=== PATIENT | female | born 1950 | race Caucasian/White ===

== ENCOUNTER 2024-08-18 09:17 | Emergency (ER) | payer MEDICARE, OTHER, SELFPAY ==
[2024-08-18] VITALS (7 sets, daily range): BP systolic 127–149; BP diastolic 61–76; PULSE 51–68; RESP 13–22; TEMP 36.7; O2SAT 93–96; BMI 38.6
--- NOTE | 2024-08-18 09:25 | DI.RAD.S_ITS ---
PROCEDURE: XR CHEST 1V INDICATIONS: Shortness of breath TECHNIQUE: One view of the chest was acquired. COMPARISON: None. FINDINGS: Surgical changes and devices: None. Lungs and pleura: Lungs are clear except for a slight degree of alveolar infiltration at the lateral costophrenic sulcus of the left lower lobe area. No pleural effusions or pneumothorax. Mediastinum: Mediastinal contours appear normal. Heart size is normal. Bones and chest wall: No suspicious bony lesions. Overlying soft tissues appear unremarkable. IMPRESSION: Possible mild or early pneumonia lateral left lower lobe. No associated pleural effusion is seen. Dictated by: Jose Juan Hwang M.D. on 08/18/2024 at 9:37 Approved by: Jose Juan Hwang M.D. on 08/18/2024 at 9:38
--- NOTE | 2024-08-18 09:30 | EKG_ITS ---
[address] [id number] [address], [place] [address] Test Date: 2024-08-18 Pat Name: Rin Piper Department: Room: Gender: Female Community Leader: RANDY : 1950 Requested By: Order Number: [id number] Reading MD: Davidson Castañeda MD Measurements Intervals [place] Rate: 54 P: 17 GA: 156 QRS: 23 QRSD: 88 T: 15 QT: 482 QTc: 457 Interpretive Statements Sinus bradycardia Inferior infarct , age undetermined Possible Anterior infarct , age undetermined Electronically Signed On 08-18-2024 12:04:06 PST by Davidson Castañeda MD
--- NOTE | 2024-08-18 09:45 | ED.GENADULT ---
HPI - General Adult General Chief complaint: Shortness of Breath/Dyspnea Stated complaint: leg/feet sweelling Time Seen by Provider: 08/18/24 09:31 Source: patient Mode of arrival: Ambulatory History of Present Illness HPI narrative: 73-year-old female. Here for evaluation of bilateral lower extremity swelling. She also reports some shortness of breath but feels that that is very minor issue. No cough. No fevers. No chest pain. No trauma. She states she has had her legs swell 1 time in the past but it only lasted a day or 2 and resolved on its own. She does have history of hypertension. No prior history of coronary artery disease that is diagnosed. No history of heart failure. Related Data Previous Rx's Medication Instructions Recorded furosemide 20 mg tablet (Lasix) 20 mg PO DAILY #30 tabs 08/18/24 Allergies Allergy/AdvReac Type Severity Reaction Status Date / Time codeine Allergy Verified 08/18/24 09:26 Review of Systems Review of Systems ROS Unobtainable: All systems reviewed & are unremarkable except as noted in HPI and below Patient History Social History Smoking Status: Unknown if ever smoked Smoking Status: Unknown if ever smoked Exam Initial Vital Signs Initial Vital Signs: Vital Signs Temperature 98.0 F 08/18/24 09:18 Pulse Rate 68 08/18/24 09:18 Respiratory Rate 14 08/18/24 09:18 Blood Pressure 130/61 08/18/24 09:18 Pulse Oximetry 96 08/18/24 09:18 Oxygen Delivery Method Room Air 08/18/24 09:18 Const General: cooperative, comfortable and No ill appearing [facility] Head: normal to inspection and normocephalic Resp Effort & Inspection: normal respiratory effort Auscultation: clear to auscultation bilaterally Cardio Rate: regular rate Rhythm: regular rhythm Pulses: dorsalis pedis present bilaterally GI Inspection: normal to inspection and non-distended Neuro Sensory Exam: no sensory deficits noted Extrem General: capillary refill normal and edema Course Orders Ordered: ED Orders 08/18/24 09:25 XR chest 1V Stat EKG-12 Lead Stat 08/18/24 09:50 Complete Blood Count AUTO DIFF Stat Comprehensive Metabolic Panel Stat NT-proBNP (BNP-Adult 18+) Stat Troponin & CK Cardiac Panel Stat Vital Signs Vital signs: Vital Signs - 8 hr 08/18/24 09:18 Temperature 98.0 F Pulse Rate 68 Respiratory Rate 14 Blood Pressure 130/61 Pulse Oximetry 96 Oxygen Delivery Method Room Air Medical Decision Making Lab Data Lab results reviewed: Yes I reviewed the patient's lab results. 08/18/24 09:50 08/18/24 09:50 Labs: Lab Results 08/18/24 08/18/24 Range/Units 09:50 09:50 WBC 5.9 (4.5-11.0) X10^3/uL RBC 4.15 (4.0-5.2) X10^6/uL Hgb 13.9 (12.0-16.0) g/dL Hct 40.6 (36-46) % MCV 97.8 (80-100) fL MCH 33.6 (26-34) PG MCHC 34.3 (30-36) % RDW 14.1 (11.6-14.8) % Plt Count 148 L (150-400) X10^3/uL Neut % (Auto) 73.5 (50-75) % Lymph % (Auto) 14.1 L (25-40) % [place] % (Auto) 12.1 (3-14) % Eos % (Auto) 0.1 L (2-4) % Baso % (Auto) 0.2 (0-2) % Neut # (Auto) 4400 (0942-5665) /uL Lymph # (Auto) 800 L (4776-7783) /uL [place] # (Auto) 700 (0-900) /uL Eos # (Auto) 0 (0-450) /uL Baso # (Auto) 0 (0-100) /uL Sodium 134 L (137-145) mmol/L Potassium 4.4 (3.4-5.1) mmol/L Chloride 108 H (98-107) mmol/L Carbon Dioxide 21 L (22-32) mmol/L BUN 18 H (7-17) mg/dL Creatinine 0.72 (0.52-1.04) mg/dL Estimated GFR > 60 (>60) mL/min BUN/Creatinine Ratio 25.0 H (6-22) Glucose 156 H (80-110) mg/dL Calcium 9.8 (8.4-10.2) mg/dL Total Bilirubin 1.0 (0.2-1.3) mg/dL AST 81 H (14-36) IU/L ALT 49 H (<35) IU/L Alkaline Phosphatase 138 H (38-126) U/L Total Creatine Kinase 108 (30-135) U/L Troponin I Cancelled < 0.012 NT-Pro-B Natriuret Pep 138 H (<125) pg/mL Total Protein 6.9 (6.3-8.2) g/dL Albumin 3.7 (3.5-5.0) g/dL Globulin 3.2 (1.7-4.1) g/dL Albumin/Globulin Ratio 1.2 (1.0-2.8) Imaging Data Chest x-ray: Radiologist's Impression: PROCEDURE: XR CHEST 1V INDICATIONS: Shortness of breath TECHNIQUE: One view of the chest was acquired. COMPARISON: None. FINDINGS: Surgical changes and devices: None. Lungs and pleura: Lungs are clear except for a slight degree of alveolar infiltration at the lateral costophrenic sulcus of the left lower lobe area. No pleural effusions or pneumothorax. Mediastinum: Mediastinal contours appear normal. Heart size is normal. Bones and chest wall: No suspicious bony lesions. Overlying soft tissues appear unremarkable. IMPRESSION: Possible mild or early pneumonia lateral left lower lobe. No associated pleural effusion is seen. ECG Data Attestation: I personally reviewed and interpreted this ECG as follows: Interpretation: Sinus bradycardia Ventricular rate of 54 Normal axis Normal QRS Normal QTC No ST T wave changes MDM Narrative Medical decision making narrative: Patient does have bilateral lower extremity swelling. She was not in overt heart failure. Her BNP is unremarkable. She was not hypertensive. Kidney functions unremarkable. Electrolytes unremarkable. Low suspicion for fracture. Low suspicion for DVT. Low suspicion for cellulitis. No trauma. No chest pain or shortness of breath. She was on hydrochlorothiazide for blood pressure control. She was also on spironolactone. Plan will be to put her on Lasix for the next couple days. I did discuss this with her. She can take it as needed. She does not have a primary doctor in the area but was given information for this. She was given return precautions. She expressed understanding and agreement with plan. Discharge Plan Departure Patient Disposition: Home Clinical Impression: Bilateral edema of lower extremity Instructions: DI for Peripheral Edema -- Bilateral Activity Restrictions/Additional Instructions: Continue to take the Lasix/furosemide as directed. Contact the phone number on the card that you were given to help establish a primary doctor. That number is #[phone]. Return to the emergency department for new or worsening symptoms. Prescriptions: New furosemide [Lasix] 20 mg tablet 20 mg PO DAILY Qty: 30 0RF Stand Alone Forms: Patient Portal/API/Survey
--- NOTE | 2024-08-18 09:47 | PC.NURSE ---
One missed attempt right forearm. Infiltrated. Pressure dressing applied. Patint tolerated well
[2024-08-18 09:58] LABS: Add Manual Diff / Slide Review NO; Basophils Absolute Auto 0 /uL (0-100); Basophils Percent Auto 0.2 % (0-2); Eosinophils Absolute Auto 0 /uL (0-450); Eosinophils Percent Auto 0.1 % (2-4); Hematocrit 40.6 % (36-46); Hemoglobin 13.9 g/dL (12.0-16.0); Lymphocytes Absolute Auto 800 /uL (1100-4500); Lymphocytes Percent Auto 14.1 % (25-40); Mean Corpuscular HGB Conc 34.3 % (30-36); Mean Corpuscular Hemoglobin 33.6 PG (26-34); Mean Corpuscular Volume 97.8 fL (80-100); Monocytes Absolute Auto 700 /uL (0-900); Monocytes Percent Auto 12.1 % (3-14); Neutrophils Absolute Auto 4400 /uL (1500-7000); Neutrophils Percent Auto 73.5 % (50-75); Platelet Count 148 X10^3/uL (150-400); Red Blood Cell Count 4.15 X10^6/uL (4.0-5.2); Red Cell Distribution Width 14.1 % (11.6-14.8); White Blood Cell Count 5.9 X10^3/uL (4.5-11.0)
[2024-08-18 10:11] LABS: Creatine Kinase 108 U/L (30-135)
[2024-08-18 10:21] LABS: NT-proBNP (BNP-Adult 18+) 138 pg/mL (<125)
[2024-08-18 10:24] LABS: Troponin I < 0.012 ng/mL (0.01-0.034)
[2024-08-18 10:35] LABS: Alanine Aminotransferase 49 IU/L (<35); Albumin 3.7 g/dL (3.5-5.0); Albumin Globulin Ratio 1.2 (1.0-2.8); Alkaline Phosphatase 138 U/L (38-126); Aspartate Aminotransferase 81 IU/L (14-36); Blood Urea Nitrogen 18 mg/dL (7-17); Calcium 9.8 mg/dL (8.4-10.2); Carbon Dioxide 21 mmol/L (22-32); Chloride 108 mmol/L (98-107); Estimated Glomerular Filt Rate > 60 mL/min (>60); Globulin 3.2 g/dL (1.7-4.1); Glucose 156 mg/dL (80-110); HEMOLYSIS 15 (0-50); Potassium 4.4 mmol/L (3.4-5.1); Sodium 134 mmol/L (137-145); Total Protein 6.9 g/dL (6.3-8.2)
== END 2024-08-18 11:26 | disposition home or self-care (01) ==
PROVIDERS: Emergency Provider Emergency Medicine
DX: R60.0 Localized edema (principal); R06.02 Shortness of breath
CPT/HCPCS: 36415; 71045; 80053; 82550; 83880; 84484; 85025; 93005; 93010; 99284

== ENCOUNTER 2024-09-30 09:55 | Emergency (ER) | payer MEDICARE, OTHER, SELFPAY ==
[2024-09-30 10:00] VITALS: BMI 37.8
[2024-09-30 10:02] VITALS: BP 190/79; PULSE 63; RESP 12; TEMP 36.7; O2SAT 96
--- NOTE | 2024-09-30 10:33 | ED.HEATRA ---
HPI - Head Injury General Chief complaint: Head Injury Stated complaint: Fell; hit top of head, No blood thinners Time Seen by Provider: 09/30/24 10:25 Source: patient and family Mode of arrival: Ambulatory History of Present Illness HPI Narrative: Patient is a 74-year-old healthy female presenting today with closed head injury. Reports that she tripped over 1 stairs hitting the right side of her head on cazares and molding. She has not on antiplatelet or anticoagulation medication. She did not lose consciousness. She has no nausea or vomiting. No numbness tingling or weakness. She denies any neck pain Related Data Previous Rx's Medication Instructions Recorded furosemide 20 mg tablet (Lasix) 20 mg PO DAILY #30 tabs 08/18/24 Allergies Allergy/AdvReac Type Severity Reaction Status Date / Time codeine Allergy Verified 09/30/24 10:02 Patient History Social History Smoking Status: Unknown if ever smoked Smoking Status: Unknown if ever smoked Exam Initial Vital Signs Initial Vital Signs: Vital Signs Temperature 98.1 F 09/30/24 10:02 Pulse Rate 63 09/30/24 10:02 Respiratory Rate 12 09/30/24 10:02 Blood Pressure 190/79 H 09/30/24 10:02 Pulse Oximetry 96 09/30/24 10:02 Oxygen Delivery Method Room Air 09/30/24 10:02 GENERAL: Well-appearing, well-nourished and in no acute distress. HEAD: Right scalp laceration 3 cm good skin approximation no crepitations no depressions NECK: No vertebral tenderness no step-off full flexion and extension and rotation CARDIOVASCULAR: peripheral pulses in tact, cap refill <2 sec RESPIRATORY: No respiratory distress, speaks in full sentences without difficulty EXTREMITIES: Normal range of motion, no clubbing or edema. Neurovascularly intact NEUROLOGICAL: Cranial nerves II through XII grossly intact. Normal gait and speech. SKIN: Right-sided scalp laceration 3 cm Procedures Laceration Repair Laceration 1: Site: scalp Side (If applicable): right Size (cm): 3 Description: linear Depth: simple, single layer Pre-repair: wound explored, irrigated extensively and deep structures intact Skin layer closed with: luis (2) Scores [place] CT Head Rule Age <16 years old: No Patient on blood thinners: No Seizure after injury: No Exclusion: Patient NOT Excluded, Proceed to next steps GCS < 15 at 2 hr post trauma: No Suspected open or depressed skull fracture: No Any sign of basilar skull fracture (hemotympanum, raccoon eyes, Lopez's sign, CSF alanna-/rhinorrhea): No Two or more episodes of vomiting: No Age greater or equal to 65 years: Yes Retrograde amnesia to the event greater or equal to 30 min: No Dangerous Mechanism (pedestrian vs. mv, occupant ejected from mv, fall from >3 ft or > 5 stairs): No Recommendation: Consider CT. The [place] Head CT Rule cannot rule out need for Imaging. Course Orders Ordered: Discontinued Medications Acetaminophen (Acetaminophen 325 Mg Tablet) 975 mg PO NOW ONE Stop: 09/30/24 10:58 Last Admin: 09/30/24 11:02 Dose: 975 mg Documented By: DIANA Diphtheria/Tetanus/Acell Pertussis (Tet,Diph,Pertuss(Acell),Vac/Pf 0.5 Ml Syringe) 0.5 ml IM .ONCE ONE Stop: 09/30/24 10:58 Last Admin: 09/30/24 11:01 Dose: 0.5 ml Documented By: DIANA Vital Signs Vital signs: Vital Signs - 8 hr 09/30/24 10:02 09/30/24 11:08 Temperature 98.1 F 98.6 F Pulse Rate 63 60 Respiratory Rate 12 20 Blood Pressure 190/79 H 185/80 H Pulse Oximetry 96 100 Oxygen Delivery Method Room Air Room Air MDM - Head Injury MDM Narrative Medical decision making narrative: Patient is a healthy 74-year-old female presenting today with closed head injury. She is not on antiplatelet or anticoagulation. She has no evidence of depressed skull fracture no needing imaging at this time. 2 luis easily placed. Tetanus updated given Tylenol here in the ED GCS 15 Discharge Plan Departure Patient Disposition: Home Clinical Impression: Closed head injury, Laceration of scalp Instructions: DI for Laceration Repair -- Ragan, Closed Head Injury Activity Restrictions/Additional Instructions: *You have been diagnosed with closed head injury, scalp laceration *What to do: At this time keep luis in for about 7 days. May have them removed with PCP Okay to shower and bathe with soap and water May need antibiotic ointment 1-2 times daily over staple *Continue to take medications as directed Tylenol 650 mg every 4-6 hours if needed for [id number] pain Motrin 600 mg every 6 hours for [id number] pain *Follow up with your primary care provider in 2-3 days or call [phone] *Return to ER if you should have increasing headache nausea vomiting weakness redness swelling drainage or any new, worsening or concerning symptoms Prescriptions: No Action furosemide [Lasix] 20 mg tablet 20 mg PO DAILY Qty: 30 0RF Referrals: Olive Cabral DO [Primary Care Provider] - Stand Alone Forms: Patient Portal/API/Survey
[2024-09-30] MEDS: TET,DIPH,PERTUSS(ACELL),VAC/PF 0.5 ML SYRINGE IM (11:01)
[2024-09-30] MEDS: ACETAMINOPHEN 325 MG TABLET 975 MG PO (11:02)
[2024-09-30 11:08] VITALS: BP 185/80; PULSE 60; RESP 20; TEMP 37; O2SAT 100
== END 2024-09-30 11:10 | disposition home or self-care (01) ==
PROVIDERS: Emergency Provider Emergency Medicine; PCP Family Medicine
DX: S01.01XA Laceration without foreign body of scalp, initial encounter (principal); W01.198A Fall on same level from slipping, tripping and stumbling with subsequent striking against other object, initial encounter; Z23 Encounter for immunization
CPT/HCPCS: 12002; 90471; 99283; 90715

== ENCOUNTER → 2024-10-06 15:41 | Outpatient (CLI) | payer MEDICARE, OTHER, SELFPAY | PROVIDERS: PCP Family Medicine; Visit Provider Family Medicine | DX: N39.0 Urinary tract infection, site not specified (principal) | CPT/HCPCS: 87086 ==

== ENCOUNTER → 2024-10-07 09:48 | Outpatient (CLI) | payer MEDICARE, OTHER, SELFPAY ==
[2024-10-07 12:09] LABS: Add Manual Diff / Slide Review NO; Alanine Aminotransferase 41 IU/L (<35); Albumin 3.9 g/dL (3.5-5.0); Albumin Globulin Ratio 1.4 (1.0-2.8); Alkaline Phosphatase 138 U/L (38-126); Aspartate Aminotransferase 62 IU/L (14-36); BUN Creatinine Ratio 15.1 (6-22); Basophils Absolute Auto 0 /uL (0-100); Basophils Percent Auto 0.1 % (0-2); Bilirubin Total 1.3 mg/dL (0.2-1.3); Blood Urea Nitrogen 11 mg/dL (7-17); Calcium 9.4 mg/dL (8.4-10.2); Carbon Dioxide 24 mmol/L (22-32); Chloride 103 mmol/L (98-107); Cholesterol 142 mg/dL (140-199); Eosinophils Absolute Auto 0 /uL (0-450); Eosinophils Percent Auto 0.1 % (2-4); Estimated Glomerular Filt Rate > 60 mL/min (>60); Gamma Glutamyl Transpeptidase 137 U/L (12-43); Globulin 2.8 g/dL (1.7-4.1); Glucose 129 mg/dL (80-110); HDL Cholesterol 62 mg/dL (40-60); HEMOLYSIS < 15 (0-50); Hematocrit 41.7 % (36-46); Hemoglobin 14.2 g/dL (12.0-16.0); LDL Cholesterol Calculated 62 mg/dL (<100); Lymphocytes Absolute Auto 900 /uL (1100-4500); Lymphocytes Percent Auto 15.6 % (25-40); Mean Corpuscular HGB Conc 34.1 % (30-36); Mean Corpuscular Hemoglobin 33.6 PG (26-34); Mean Corpuscular Volume 98.4 fL (80-100); Monocytes Absolute Auto 700 /uL (0-900); Monocytes Percent Auto 11.7 % (3-14); Neutrophils Absolute Auto 4200 /uL (1500-7000); Neutrophils Percent Auto 72.5 % (50-75); Platelet Count 135 X10^3/uL (150-400); Potassium 4.8 mmol/L (3.4-5.1); Red Blood Cell Count 4.24 X10^6/uL (4.0-5.2); Red Cell Distribution Width 13.4 % (11.6-14.8); Sodium 135 mmol/L (137-145); Total Protein 6.7 g/dL (6.3-8.2); Triglycerides 92 mg/dL (35-150); White Blood Cell Count 5.9 X10^3/uL (4.5-11.0)
[2024-10-07 12:39] LABS: TSH w/ Reflex to FT4 2.68 uIU/mL (0.47-4.68)
[2024-10-07 14:56] LABS: Creatinine Urine Random 37.63 mg/dL
[2024-10-07 15:06] LABS: Microalbumin Urine Random < 0.6 mg/dL (0-1.6)
== END ==
LOC: LAB 09:50
PROVIDERS: PCP Family Medicine; Referring Provider Family Medicine; Visit Provider Family Medicine
DX: E87.1 Hypo-osmolality and hyponatremia (principal); R74.8 Abnormal levels of other serum enzymes; Z76.89 Persons encountering health services in other specified circumstances; R60.0 Localized edema; I10 Essential (primary) hypertension; R79.89 Other specified abnormal findings of blood chemistry; Z68.39 Body mass index [BMI] 39.0-39.9, adult; E11.9 Type 2 diabetes mellitus without complications; Z12.11 Encounter for screening for malignant neoplasm of colon; E78.5 Hyperlipidemia, unspecified; R33.9 Retention of urine, unspecified; Z12.31 Encounter for screening mammogram for malignant neoplasm of breast
CPT/HCPCS: 36415; 80053; 80061; 82043; 82570; 82977; 84443; 85025

== ENCOUNTER → 2024-10-14 07:48 | Outpatient (CLI) | payer MEDICARE, OTHER, SELFPAY ==
--- NOTE | 2024-10-14 07:51 | DI.ECHO.S_ITS ---
[facility] : : [id number] : [place] : : [id number] : : Phone: [phone] Echocardiogram Report + + :Name: LUTHER ABUER Study Date: 10/14/2024 Height: 64 in : :Hospital ReadingLocation: Weight: 220 lb : : Gender: Female BSA: 2.0 m2 : :: 1950 Age: 74 yrs BP: 144/82 mmHg: :Reason For Study: HYPEERTENSION, EDEMA : :Ordering Physician: HEAVEN, : :HALEY Performed By: Dakota Quiroz : :Referring: HALEY COLLADO : + + Interpretation Summary The ejection fraction is estimated to be 60-65%. Diastolic parameters suggest probable normal left ventricular diastolic function and normal filling pressures. The right ventricular systolic function is normal. The right ventricular systolic pressure is estimated to be at least 40 mmHg based on an estimated right atrial pressure of 8 mm Hg. There is mild tricuspid regurgitation. Procedure: A two-dimensional transthoracic echocardiogram with color flow and Doppler was performed. The study quality was technically adequate. There is no prior echocardiogram noted for this patient. The patient was in normal sinus rhythm during the exam. Left Ventricle: The left ventricle is normal in size. Left ventricular wall thickness is mildly increased. There is no ventricular septal defect visualized. The ejection fraction is estimated to be 60-65%. There are no focal wall motion abnormalities. Diastolic parameters suggest probable normal left ventricular diastolic function and normal filling pressures. Right Ventricle: The right ventricle is mildly dilated. The right ventricular systolic function is normal. Atria: The left atrial size is normal. The right atrium is mildly dilated. There is no Doppler evidence for an interatrial shunt. Mitral Valve: The mitral valve leaflets appear normal. There is no evidence of stenosis, fluttering, or prolapse. There is no mitral regurgitation noted. Aortic Valve: The aortic valve is trileaflet. The aortic valve opens well. There is no aortic valve stenosis. No aortic regurgitation is present. Tricuspid Valve: The tricuspid valve is not well visualized, but is grossly normal. There is mild tricuspid regurgitation. The right ventricular systolic pressure is estimated to be at least 40 mmHg based on an estimated right atrial pressure of 8 mm Hg. Pulmonic Valve: The pulmonic valve leaflets are thin and pliable; valve motion is normal. There is trace pulmonic regurgitation. Great Vessels: The aortic root is normal size. The dimensions of the ascending aorta are normal. The pulmonary artery is normal size. The IVC is dilated (diameter is greater than 2.1 cm) yet it collapses greater than 50% with a sniff. This suggests a right atrial pressure of 8 mm Hg. Pericardium/ Pleura There is no pericardial effusion. There is no pleural effusion. MMode/2D Measurements & Calculations LVIDd: 4.3 cm LVOT diam: 1.9 cm LVIDs: 2.4 cm Ao root diam: 3.0 cm FS: 44.5 % asc Aorta Diam: 3.4 cm EPSS: 0.29 cm IVSd: 1.3 cm LVPWd: 1.2 cm LV manley. diameter/BSA (cm/m^2): 2.1 LV sys. diameter/BSA (cm/m^2): 1.2 LA A2 area: 20.9 cm2 RA long axis: 5.2 cm LA A4 area: 21.5 cm2 RA area: 19.6 cm2 LA length (vol): 5.7 cm RA vol: 62.2 ml LA vol: 66.5 ml RA : 30.5 ml/m2 LA vol index: 32.6 ml/m2 IVC diam: 2.4 cm RVD1 (basal): 4.3 cm RVD2 (mid): 3.1 cm TAPSE: 3.0 cm Doppler Measurements & Calculations Ao V2 max: 182.9 cm/sec LVOT Max Adrien: 127.7 cm/sec Ao V2 mean: 131.0 cm/sec LV V1 max P.5 mmHg Ao max P.4 mmHg LV V1 VTI: 31.0 cm Ao mean P.5 mmHg DEDE(I,D): 2.0 cm2 Ao V2 VTI: 44.4 cm DEDE(V,D): 2.0 cm2 sev ratio: 0.70 DEDE indexed to BSA (cm^2/m^2): 0.99 MV E max adrien: 109.3 cm/sec TR max adrien: 281.8 cm/sec MV A max adrien: 62.7 cm/sec TR max P.8 mmHg MV E/A: 1.7 PA V2 max: 63.2 cm/sec Med Peak E' Adrien: 10.0 cm/sec PA V2 mean: 40.5 cm/sec E/E' med: 10.9 PA mean P.75 mmHg Lat Peak E' Adrien: 9.1 cm/sec PA pr(Accel): 15.6 mmHg E/E' lat: 12.0 E/e' average: 11.4 MV dec time: 0.16 sec SV(LVOT): 89.4 ml Reading Physician:02:52 PM
== END ==
PROVIDERS: PCP Family Medicine; Referring Provider Family Medicine; Visit Provider Family Medicine
DX: I07.1 Rheumatic tricuspid insufficiency (principal); I10 Essential (primary) hypertension; R60.0 Localized edema; E11.9 Type 2 diabetes mellitus without complications; R79.89 Other specified abnormal findings of blood chemistry
CPT/HCPCS: 93306

== ENCOUNTER → 2024-10-26 10:04 | Outpatient (CLI) | payer MEDICARE, OTHER, SELFPAY ==
--- NOTE | 2024-10-26 | DI.MG.S_ITS ---
UNILATERAL LEFT DIGITAL DIAGNOSTIC MAMMOGRAM 3D/2D WITH ADDITIONAL VIEWS: 10/26/2024 CLINICAL: Additional evaluation requested from prior study. Comparison is made to exams dated: 02/26/2024 mammogram and 04/30/2020 mammogram - out side. The breasts are heterogeneously dense, which may obscure small masses (category c / 51-75% glandular tissue). There are benign secretory calcification in the left breast upper outer quadrant at posterior depth. This corresponds to finding seen on recent outside screening mammogram. There is redemonstration of diffuse secretory calcifications seen throughout the left breast. No other significant masses or calcifications are seen in the breast. IMPRESSION: BENIGN Left breast secretory calcifications in the posterior upper outer quadrant. Finding is benign. No mammographic evidence of malignancy. Recommend return to annual mammogram screening, due February 2025. Findings and recommendations were conveyed to the patient during today's evaluation. Based on the Tyrer Cuzick model (a risk assessment model) the patient's lifetime risk is 8.5% and her 10 year risk is 6.4%. According to the ACR, ACS, and NCCN guidelines, an annual breast MRI exam along with mammogram is recommended if the patient's lifetime risk is 20% or greater. This exam was interpreted at Station ID: [id number]. NOTE: For mammograms, a report in lay terms will be sent to the patient. Approximately 15% of breast malignancies will not be visualized mammographically. In the management of a palpable breast mass, a negative mammogram must not discourage biopsy of a clinically suspicious lesion. Electronically Signed By: Lakshmi Erazo M.D., Ph.D. eb/:10/26/2024 15:00:27 letter sent: Normal Exam ACR BI-RADS Category 2: Benign
--- NOTE | 2024-10-26 10:05 | DI.RAD.S_ITS ---
PROCEDURE: XR DEXA AXIAL SKELETON INDICATIONS: Osteoporosis Screening COMPARISON: None. FINDINGS: Lumbar Spine: Bone mineral density 1.004 g/cm2, T score -0.4. Left Femoral Neck: Bone mineral density 0.776 g/cm2, T score -0.7 Left Hip: Bone mineral density 0.964 g/cm2, T score 0.2. Fracture Risk Calculation (when applicable): 10-year fracture risk of a major osteoporotic fracture 7.8 percent and of a hip fracture 0.7 percent. (T score greater or equal to -1.0 to: NORMAL) (T score from -1.1 to -2.4: OSTEOPENIA) (T score less than or equal to -2.5: OSTEOPOROSIS) IMPRESSION: Normal---recommend repeat DEXA as clinically indicated. Follow-up guidelines as follows: Osteoporosis: Consider a repeat DEXA and Vertebral Fracture Assessment (VFA) exam in 2 years or sooner if medically necessary, to reassess this patient's status. Osteopenia: Consider a repeat DEXA in 2-3 years to reassess this patient's status, or if there is a new clinical indication. Normal: Consider a repeat DEXA in 5 years or sooner, or if there is a new clinical indication. All treatment decisions require clinical judgment and consideration of individual patient factors, including patient preferences, comorbidities, previous drug use, risk factors not captured in the FRAX model (e.g., frailty, falls, vitamin D deficiency, increased bone turnover, interval significant decline in bone density ) and possible under- or over-estimation of fracture risk by FRAX. In addition, the NOF Guide recommends that FDA-approved medical therapies be considered in postmenopausal women and men age >= 50 years with a: * Hip or vertebral (clinical or morphometric) fracture * T-score of <=-2.5 at the spine or hip * Ten-year fracture probability by FRAX of >= 3% for hip fracture or >=20% for major osteoporotic fracture. Dictated by: Akil Campos M.D. on 10/26/2024 at 21:57 Approved by: Akil Campos M.D. on 10/26/2024 at 21:58
== END ==
PROVIDERS: PCP Family Medicine; Referring Provider Family Medicine; Visit Provider Family Medicine
DX: R92.333 Mammographic heterogeneous density, bilateral breasts (principal); R92.1 Mammographic calcification found on diagnostic imaging of breast; M85.89 Other specified disorders of bone density and structure, multiple sites; Z78.0 Asymptomatic menopausal state; E11.9 Type 2 diabetes mellitus without complications; E87.1 Hypo-osmolality and hyponatremia; I10 Essential (primary) hypertension; Z12.11 Encounter for screening for malignant neoplasm of colon; R74.8 Abnormal levels of other serum enzymes; R60.0 Localized edema; R79.89 Other specified abnormal findings of blood chemistry; R33.9 Retention of urine, unspecified; N63.20 Unspecified lump in the left breast, unspecified quadrant; Z76.89 Persons encountering health services in other specified circumstances
CPT/HCPCS: 77065; 77080; G0279

== ENCOUNTER 2024-10-28 21:10 | Emergency (ER) | payer MEDICARE, OTHER, SELFPAY ==
[2024-10-28 21:14] VITALS: BP 197/83; PULSE 80; RESP 17; TEMP 36.6; O2SAT 98; BMI 37.8
--- NOTE | 2024-10-28 21:25 | DI.CT.S_ITS ---
PROCEDURE: CT ABDOMEN PELVIS W CON INDICATIONS: r/o bowel obstruction TECHNIQUE: After the administration of intravenous contrast, axial sections acquired from the lung bases to the pubic symphysis. Coronal and sagittal reformats were performed. For radiation dose reduction, the following was used: automated exposure control, adjustment of mA and/or kV according to patient size. COMPARISON: None. FINDINGS: Image quality: Diagnostic. Peritoneum: No pneumoperitoneum or ascites. Bones: No acute osseous abnormality. Lower Chest: No acute abnormality. Liver: Macronodular contour. Normal in size. Main portal vein measures 1.5 cm in diameter (2/51). Small developing varices at the splenic hilum and gastrohepatic ligament. Gallbladder: No stones. Wall thickening with pericholecystic edema (2/63). Biliary tree: No intrahepatic or extrahepatic biliary ductal dilatation. Pancreas: Within normal limits. Spleen: Splenomegaly up to 14.4 cm (2/43). Kidneys: No hydronephrosis or obstructive urolithiasis. Nonobstructive right superior calyceal 6 mm calculus (3/79) Adrenals: No adrenal nodularity. Bladder: Normal in size and wall thickness. : Anteverted uterus with endometrial fluid (4/78). 3.1 cm hypodense lesion at the lower uterine segment (4/71). Stomach: Normal in size and contour. Bowel: Normal in diameter without any bowel obstruction. Mild mural thickening of the distal ascending colon/hepatic flexure (3/48). Nonvisualization of the appendix without secondary signs of acute appendicitis. Lymph Nodes: Borderline enlarged radha hepatis and aortocaval nodes, the largest which is a 9 mm short axis ardha hepatis node (2/58; 3/61). Vascular: No abdominal aortic aneurysm. The visualized arterial vasculature is patent. Soft Tissues: No acute abnormality. IMPRESSION: 1. No CT evidence of bowel obstruction. 2. 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 3. Nonobstructive right superior calyceal nephrolithiasis. 4. Uterine findings for which a nonemergent pelvic ultrasound and gynecological consultation would be recommended. Dictated by: Akil Walker M.D. on 10/28/2024 at 23:06 Approved by: Akil Walker M.D. on 10/28/2024 at 23:13
[2024-10-28 21:46] LABS: Add Manual Diff / Slide Review NO; Basophils Absolute Auto 0 /uL (0-100); Basophils Percent Auto 0.1 % (0-2); Eosinophils Absolute Auto 0 /uL (0-450); Hemoglobin 15.5 g/dL (12.0-16.0); Lymphocytes Absolute Auto 800 /uL (1100-4500); Lymphocytes Percent Auto 4.9 % (25-40); Mean Corpuscular HGB Conc 34.4 % (30-36); Mean Corpuscular Hemoglobin 33.5 PG (26-34); Mean Corpuscular Volume 97.5 fL (80-100); Monocytes Absolute Auto 1300 /uL (0-900); Monocytes Percent Auto 8.2 % (3-14); Neutrophils Absolute Auto 13700 /uL (1500-7000); Neutrophils Percent Auto 86.8 % (50-75); Platelet Count 183 X10^3/uL (150-400); Red Blood Cell Count 4.62 X10^6/uL (4.0-5.2); Red Cell Distribution Width 13.7 % (11.6-14.8); White Blood Cell Count 15.7 X10^3/uL (4.5-11.0)
[2024-10-28 21:57] LABS: Alanine Aminotransferase 54 IU/L (<35); Albumin 4.4 g/dL (3.5-5.0); Albumin Globulin Ratio 1.2 (1.0-2.8); Alkaline Phosphatase 148 U/L (38-126); Aspartate Aminotransferase 81 IU/L (14-36); BUN Creatinine Ratio 19.5 (6-22); Bilirubin Total 2.2 mg/dL (0.2-1.3); Blood Urea Nitrogen 15 mg/dL (7-17); Calcium 10.1 mg/dL (8.4-10.2); Carbon Dioxide 17 mmol/L (22-32); Chloride 106 mmol/L (98-107); Estimated Glomerular Filt Rate > 60 mL/min (>60); Globulin 3.6 g/dL (1.7-4.1); Glucose 173 mg/dL (80-110); HEMOLYSIS 31 (0-50); Lipase 278 U/L (23-300); Potassium 3.9 mmol/L (3.4-5.1); Sodium 138 mmol/L (137-145)
[2024-10-29 00:25] VITALS: PULSE 75; O2SAT 93
[2024-10-29 00:27] VITALS: BP 148/69; PULSE 76; O2SAT 92
[2024-10-29 00:30] VITALS: PULSE 74; O2SAT 93
[2024-10-29 01:00] VITALS: PULSE 75; O2SAT 91
[2024-10-29 01:30] VITALS: PULSE 73; O2SAT 91
--- NOTE | 2024-10-29 01:44 | ED.ABDPAIN ---
HPI - Abdominal Pain General Chief Complaint: Abdominal Pain Stated Complaint: impacted, unable to urinate Time Seen by Provider: 10/29/24 00:22 Source: patient Mode of arrival: Wheelchair History of Present Illness HPI narrative: 74-year-old female denies previous abdominopelvic surgeries, has history of colonic polyps she reports found on previous colonoscopies, no recent colonoscopy, complains of lower abdominal pain that increased through the day yesterday, quite intense. She tried to fleets enemas at home. She has not tried any oral laxatives. No black or red stools. No nausea or vomiting. No dysuria frequency of urination. No shortness of breath or chest pain. Related Data Home Medications Medication Instructions Recorded Confirmed atorvastatin 10 mg tablet 10 mg PO BEDTIME 10/06/24 10/06/24 clonidine HCl 0.2 mg tablet 0.2 mg PO BID 10/06/24 10/06/24 fluoxetine 10 mg capsule 10 mg PO DAILY 10/06/24 10/06/24 fluoxetine 40 mg capsule 40 mg PO DAILY 10/06/24 10/06/24 olanzapine 10 mg tablet 10 mg PO BEDTIME 10/06/24 10/06/24 spironolactone 25 mg tablet 25 mg PO DAILY 10/06/24 10/06/24 Allergies Allergy/AdvReac Type Severity Reaction Status Date / Time codeine AdvReac Severe Vomiting Verified 10/28/24 21:18 Patient History Social History Smoking Status: Never smoker Smoking Status: Never smoker Exam Narrative Exam Narrative: GENERAL: Well-developed patient, in mild distress. HEAD: Atraumatic. Normocephalic. EYES: Pupils equal round and reactive. Extraocular motions intact. No scleral icterus. No injection or drainage. ENT: Nose without bleeding, purulent drainage. Throat without erythema, tonsillar hypertrophy or exudate. Airway patent. NECK: Trachea midline. Non tender CARDIOVASCULAR: Regular rate and rhythm without murmurs, gallops, or rubs. RESPIRATORY: Clear to auscultation. Breath sounds equal bilaterally. No wheezes, rales, or rhonchi. GASTROINTESTINAL: Abdomen soft, non-tender, nondistended. EXTREMITIES: No edema or joint tenderness. BACK: Nontender without deformity or crepitance. No flank tenderness. NEURO: AOx3. Motor functions grossly nonfocal SKIN: No rash or erythema of visible areas Initial Vital Signs Initial Vital Signs: Vital Signs Temperature 98 F 10/28/24 21:14 Pulse Rate 80 10/28/24 21:14 Respiratory Rate 17 10/28/24 21:14 Blood Pressure 197/83 H 10/28/24 21:14 Pulse Oximetry 98 10/28/24 21:14 Oxygen Delivery Method Room Air 10/28/24 21:14 Course Orders Ordered: Discontinued Medications Hydromorphone HCl (Hydromorphone 0.5 Mg Inj) 0.5 mg IV NOW ONE Stop: 10/29/24 00:23 Ondansetron HCl (Ondansetron 4 Mg/2 Ml Inj) 4 mg IV NOW PRN PRN Reason: Nausea And Vomiting Ondansetron HCl (Ondansetron 4 Mg Odt) 4 mg PO NOW PRN PRN Reason: Nausea And Vomiting Vital Signs Vital signs: Vital Signs - 8 hr 10/28/24 21:14 10/29/24 00:25 10/29/24 00:27 Temperature 98 F Pulse Rate 80 75 Respiratory Rate 17 Blood Pressure 197/83 H 148/69 H Pulse Oximetry 98 93 Oxygen Delivery Method Room Air 10/29/24 00:27 10/29/24 00:30 Temperature Pulse Rate 76 74 Respiratory Rate Blood Pressure Pulse Oximetry 92 93 Oxygen Delivery Method MDM - Abdominal Pain Lab Data Attestation: I reviewed the patient's lab results. Lab results narrative: White blood cell count 52455, hemoglobin 15.5, platelets 183,000. Glucose 173, BUN 15 with creatinine 0.77. Sodium 138, potassium 3.9, serum CO2 17 diminished. T bili 2.2, AST 81, ALT 54, alkaline phosphatase 148. Lipase 278 normal. 10/28/24 21:35 10/28/24 21:35 Labs: Lab Results 10/28/24 Range/Units 21:35 WBC 15.7 H (4.5-11.0) X10^3/uL RBC 4.62 (4.0-5.2) X10^6/uL Hgb 15.5 (12.0-16.0) g/dL Hct 45.0 (36-46) % MCV 97.5 (80-100) fL MCH 33.5 (26-34) PG MCHC 34.4 (30-36) % RDW 13.7 (11.6-14.8) % Plt Count 183 (150-400) X10^3/uL Neut % (Auto) 86.8 H (50-75) % Lymph % (Auto) 4.9 L (25-40) % Wise % (Auto) 8.2 (3-14) % Eos % (Auto) 0.0 L (2-4) % Baso % (Auto) 0.1 (0-2) % Neut # (Auto) 22444 H (2877-6025) /uL Lymph # (Auto) 800 L (3762-6734) /uL Wise # (Auto) 1300 H (0-900) /uL Eos # (Auto) 0 (0-450) /uL Baso # (Auto) 0 (0-100) /uL Sodium 138 (137-145) mmol/L Potassium 3.9 (3.4-5.1) mmol/L Chloride 106 (98-107) mmol/L Carbon Dioxide 17 L (22-32) mmol/L BUN 15 (7-17) mg/dL Creatinine 0.77 (0.52-1.04) mg/dL Estimated GFR > 60 (>60) mL/min BUN/Creatinine Ratio 19.5 (6-22) Glucose 173 H (80-110) mg/dL Calcium 10.1 (8.4-10.2) mg/dL Total Bilirubin 2.2 H (0.2-1.3) mg/dL AST 81 H (14-36) IU/L ALT 54 H (<35) IU/L Alkaline Phosphatase 148 H (38-126) U/L Total Protein 8.0 (6.3-8.2) g/dL Albumin 4.4 (3.5-5.0) g/dL Globulin 3.6 (1.7-4.1) g/dL Albumin/Globulin Ratio 1.2 (1.0-2.8) Lipase 278 (23-300) U/L [facility] Narrative Medical decision making narrative: 74-year-old female with lower abdominal pain through the day today, no prior abdominopelvic surgeries, afebrile, sirs screen negative. No injury trauma. Screening labs show white blood cell count 16159, LFTs mildly elevated, lipase normal. CT abdomen and pelvis ordered. CT abdomen and pelvis with IV contrast. Impressions: ?No CT evidence of bowel obstruction. Cirrhotic morphology of the liver with developing portal hypertension, borderline enlarged radha hepatis/retroperitoneal lymphadenopathy, and possibly reactive gallbladder/ascending colon mural thickening. Nonobstructive right superior calyceal nephrolithiasis. Uterine findings for which a non emergent pelvic ultrasound and gynecologic consultation would be recommended.In text there is mentioned in the bowel suction mural thickening of the distal ascending colon hepatic selector, no stranding however mentioned. section mentions 3.1 cm hypodense lesion at the lower uterine segment. Cirrhotic for changes in portal venous changes noted. No mention of ascites. See radiology report. Copy of the report given to the patient. Who reports that she went for scan and then went to the bathroom and had a large bowel movement without black or red color, and feels better after that bowel movement. Thickening of the colon mentioned but she feels better, without tenderness on examination, no stranding, further workup as an outpatient, hold antibiotics for now. Lower uterine segment lesion on CT, likely not related to her current pain, unless it is a degenerating uterine fibroid. Follow up with Gynecology advised. Nonobstructing nephrolithiasis noted. Patient feels better and would like to go home. Home with . Follow up for CT findings noted above. Discharge Plan Departure Patient Disposition: Home Clinical Impression: Abdominal pain, Kidney stone, Colon wall thickening, Cirrhosis of liver, Lesion of uterus Activity Restrictions/Additional Instructions: Ms Piper, You mentioned no history of prior abdominal surgeries or pelvic surgeries, had lower abdominal discomfort this evening, with elevated white blood cell count on blood testing, slight elevation of liver tests, normal lipase tests from the pancreas. After you went for the CT scan you had a bowel movement without bloody changes, and felt better. We gave you a copy of your CT report, and reviewed the findings with Nicole. On abdominal examination you do not seem to have any tenderness, and feel better after the bowel movement mentioned above. CT abdomen and pelvis was done with a number of findings that do not necessarily explain your recent pain symptoms. Radiology reading of the CT scan mentioned: Cirrhosis of the liver was noted, with portal venous changes, you mentioned some alcohol use, this can be due to alcohol or due to other factors such like hepatitis infections or autoimmune disorders and other causes, further follow up as an outpatient for this finding. It does not explain your abdominal pain in the lower region. Thickening of the sigmoid colon was also mentioned, without stranding, sometimes this might represent inflammation of the colon such as colitis, however if you had colitis in his should really have gotten better after a bowel movement and there should be some tenderness on examination that there does not seem to be now. We will hold off on antibiotics. This finding is important to have further workup, consider repeat colonoscopy, or comparison to prior studies if any available. Further follow up as an outpatient. Lower uterine segment lesion 3.1 cm noted, if this is a degenerating fibroid than this actually can cause some discomfort in the lower abdomen, no mention of any vaginal bleeding, follow up with Gynecology advised, you might need a referral from your regular primary care provider. Kidney stones mentioned on the right side but not obstructing anything, not likely a cause of your lower abdominal pain, can be further followed up as an outpatient as well. Drink plenty of fluids and consider [id number] laxative such as MiraLax to help prevent further constipation or bowel movement problems. Follow up for findings above with your regular provider with referrals as needed. Return earlier to this/nearest emergency department for any change worsening symptoms or any concerns prior. Thank you for allowing our team to evaluate you today. Prescriptions: No Action olanzapine 10 mg tablet 10 mg PO BEDTIME clonidine HCl 0.2 mg tablet 0.2 mg PO BID fluoxetine 40 mg capsule 40 mg PO DAILY spironolactone 25 mg tablet 25 mg PO DAILY fluoxetine 10 mg capsule 10 mg PO DAILY Patient Comments: Takes with 40 mg of fluoxetine for total of 50mg daily. atorvastatin 10 mg tablet 10 mg PO BEDTIME Referrals: Olive Cabral DO [Primary Care Provider] - Stand Alone Forms: Patient Portal/API/Survey
[2024-10-29 02:00] VITALS: PULSE 72; O2SAT 93
== END 2024-10-29 02:32 | disposition home or self-care (01) ==
PROVIDERS: Emergency Provider Emergency Medicine; PCP Family Medicine
DX: N20.0 Calculus of kidney (principal); K74.60 Unspecified cirrhosis of liver; N85.9 Noninflammatory disorder of uterus, unspecified; R10.9 Unspecified abdominal pain
CPT/HCPCS: 36415; 74177; 80053; 83690; 85025; 99283; 99284; Q9967

== ENCOUNTER → 2024-11-17 08:47 | Outpatient (CLI) | payer MEDICARE, OTHER, SELFPAY ==
[2024-11-17 09:21] LABS: Ammonia (NH3) 31 umol/L (9-30)
[2024-11-17 09:33] LABS: Alanine Aminotransferase 43 IU/L (<35); Albumin Globulin Ratio 1.4 (1.0-2.8); Alkaline Phosphatase 142 U/L (38-126); Aspartate Aminotransferase 63 IU/L (14-36); BUN Creatinine Ratio 15.4 (6-22); Bilirubin Total 1.6 mg/dL (0.2-1.3); Blood Urea Nitrogen 10 mg/dL (7-17); Calcium 9.7 mg/dL (8.4-10.2); Carbon Dioxide 18 mmol/L (22-32); Chloride 100 mmol/L (98-107); Estimated Glomerular Filt Rate > 60 mL/min (>60); Globulin 2.8 g/dL (1.7-4.1); Glucose 184 mg/dL (80-110); HEMOLYSIS < 15 (0-50); Sodium 131 mmol/L (137-145); Total Protein 6.8 g/dL (6.3-8.2)
[2024-11-17 13:06] LABS: Hemoglobin A1C% w Est Avg Glu 6.3 % (4.0-6.0)
[2024-11-18 03:37] LABS: HBsAg Screen Negative (Negative); Hepatitis A Antibody IgM Negative (Negative); Hepatitis B Core Antibody IgM Negative (Negative); Hepatitis C Antibody Non Reactive (Non Reactive)
[2024-11-18 07:09] LABS: Alpha Fetoprotein 5.6 ng/mL (0.0-9.2)
== END ==
PROVIDERS: Family Medicine; PCP Family Medicine; Referring Provider Family Medicine; Visit Provider Family Medicine
DX: E11.9 Type 2 diabetes mellitus without complications (principal); K74.60 Unspecified cirrhosis of liver; R60.0 Localized edema; I10 Essential (primary) hypertension; Z68.39 Body mass index [BMI] 39.0-39.9, adult
CPT/HCPCS: 36415; 80053; 80074; 82105; 82140; 83036

== ENCOUNTER → 2024-11-28 06:52 | Outpatient (CLI) | payer MEDICARE, OTHER, SELFPAY ==
--- NOTE | 2024-11-28 06:54 | DI.US.S_ITS ---
PROCEDURE: US PELVIC COMPLETE INDICATIONS: reassess pelvic mass TECHNIQUE: Real-time scanning was performed of the pelvic organs, with image documentation. Additional endovaginal scanning was necessary due to incomplete visualization of the adnexal and endometrial structures by transabdominal scanning. COMPARISON: Merged With [facility], CT, CT ABDOMEN PELVIS W CON, 10/28/2024, 22:11. FINDINGS: Uterus: Uterus is anteverted and normal in size at 9.2 x 4.2 x 3.6 cm. The myometrium is homogeneous. Mid anterior intramural fibroid measuring 1.1 x 0.9 x 0.9 cm. Punctate calcifications in the uterus. The endometrium measures 11 mm combined thickness. Unilocular cystic structure or fluid at the cervix measuring 2.6 x 2.6 x 2.4 cm. No internal vascularity is seen. This corresponds to the CT finding. Ovaries: Ovaries are not well seen. Other: No pathologic free abdominal or pelvic fluid. IMPRESSION: 1. Avascular cystic structure at the uterine cervix measuring 2.6 cm. Indeterminate. This could represent tunnel cluster, adenoma malignum, or other mucous retention cyst. Cervical carcinoma is felt to be less likely. However, malignancy is not excluded. 2. Endometrial thickening measuring 11 mm. 3. Small intramural fibroid. Recommend cervical and endometrial biopsy if not yet performed. Gynecological consultation may be helpful. Pelvic MRI with IV contrast could also be helpful. We strive to produce accurate, complete, and clear reports of imaging services. To assist us in improving patient care, this report was composed using standard report templates and voice recognition software. Therefore, it may contain abnormal punctuation, insertions and/or omissions. Occasional wrong-word or sound-alike substitutions may occur. Though we review the report and make efforts to correct it, we do recommend that the report be read carefully in proper context to recognize any text inaccuracies. Dictated by: Nate De Oliveira M.D. on 11/28/2024 at 10:34 Approved by: Nate De Oliveira M.D. on 11/28/2024 at 10:48
== END ==
PROVIDERS: PCP Family Medicine; Referring Provider Family Medicine; Visit Provider Family Medicine
DX: D25.1 Intramural leiomyoma of uterus (principal); R19.00 Intra-abdominal and pelvic swelling, mass and lump, unspecified site; R93.89 Abnormal findings on diagnostic imaging of other specified body structures; K74.60 Unspecified cirrhosis of liver; I10 Essential (primary) hypertension; E11.9 Type 2 diabetes mellitus without complications
CPT/HCPCS: 76830; 76856

== ENCOUNTER → 2024-12-16 07:21 | Outpatient (CLI) | payer MEDICARE, OTHER, SELFPAY ==
--- NOTE | 2024-12-16 07:22 | DI.US.S_ITS ---
PROCEDURE: US ABDOMEN LIMITED INDICATIONS: further evaluation of cirrhosis TECHNIQUE: Real-time scanning was performed of the abdominal and retroperitoneal organs, with image documentation. COMPARISON: None. FINDINGS: Liver: Heterogeneous echogenicity of the liver with lobulated contour, prominent left lobe, cirrhotic change. No ultrasound evidence of focal hepatic lesion. Color Doppler flow demonstrates main portal vein hepatopetal flow at 31 cm/s. 15 mm in size enlarged suggests an element of portal venous hypertension. Gallbladder: Gallbladder is [id number] distended commonly related to NPO or other process. No ultrasound evidence of gallstones, no gallbladder wall thickening, no pericholecystic fluid, and sonographic Farris sign is noted as negative. Biliary ducts: Intrahepatic bile ducts are non-dilated. Extrahepatic bile duct caliber measures 7 mm. Normal is 6-7 mm or less in diameter. Pancreas: Pancreas not well-visualized due to overlying bowel gas. Visualized portions of the pancreas are sonographically normal. Spleen: Spleen is normal in size and homogeneous in echotexture. Kidneys: Kidneys are normal in size and echotexture. Right kidney measures 10.9 cm long. No hydronephrosis or nephrolithiasis. Miscellaneous: No free abdominal fluid. IMPRESSION: Cirrhotic appearing liver as discussed above with enlarged main portal vein. No ultrasound evidence of focal hepatic lesion Deidre Garcia on 12/16/2024 at 11:36 Approved by: Beny Garcia M.D. on 12/16/2024 at 11:40
== END ==
PROVIDERS: PCP Family Medicine; Referring Provider Family Medicine; Visit Provider Family Medicine
DX: K74.60 Unspecified cirrhosis of liver (principal); R16.1 Splenomegaly, not elsewhere classified; E11.9 Type 2 diabetes mellitus without complications
CPT/HCPCS: 76705

== ENCOUNTER → 2025-01-02 16:00 | Outpatient (CLI) | payer MEDICARE, OTHER, SELFPAY ==
[2025-01-02 16:25] LABS: Add Manual Diff / Slide Review NO; Basophils Absolute Auto 0 /uL (0-100); Basophils Percent Auto 0.2 % (0-2); Eosinophils Absolute Auto 0 /uL (0-450); Eosinophils Percent Auto 0.3 % (2-4); Hematocrit 40.8 % (36-46); Lymphocytes Absolute Auto 1200 /uL (1100-4500); Mean Corpuscular HGB Conc 34.3 % (30-36); Mean Corpuscular Hemoglobin 32.9 PG (26-34); Mean Corpuscular Volume 95.9 fL (80-100); Monocytes Absolute Auto 700 /uL (0-900); Monocytes Percent Auto 11.2 % (3-14); Neutrophils Absolute Auto 4100 /uL (1500-7000); Neutrophils Percent Auto 68.3 % (50-75); Platelet Count 120 X10^3/uL (150-400); Red Blood Cell Count 4.25 X10^6/uL (4.0-5.2); Red Cell Distribution Width 13.3 % (11.6-14.8)
[2025-01-02 16:48] LABS: INR 1.2 (0.9-1.3); Prothrombin Time 14.1 SECONDS (9.4-12.5)
[2025-01-02 16:50] LABS: PTT Partial Thromboplastin Tim 38 SECONDS (25.1-36.5)
[2025-01-02 16:59] LABS: Alanine Aminotransferase 34 IU/L (<35); Albumin 3.9 g/dL (3.5-5.0); Albumin Globulin Ratio 1.6 (1.0-2.8); Alkaline Phosphatase 136 U/L (38-126); Aspartate Aminotransferase 44 IU/L (14-36); Bilirubin Total 1.3 mg/dL (0.2-1.3); Blood Urea Nitrogen 9 mg/dL (7-17); Calcium 9.5 mg/dL (8.4-10.2); Carbon Dioxide 26 mmol/L (22-32); Chloride 102 mmol/L (98-107); Estimated Glomerular Filt Rate > 60 mL/min (>60); Globulin 2.5 g/dL (1.7-4.1); Glucose 193 mg/dL (70-99); HEMOLYSIS < 15 (0-50); Potassium 4.4 mmol/L (3.4-5.1); Sodium 135 mmol/L (137-145); Total Protein 6.4 g/dL (6.3-8.2)
== END ==
PROVIDERS: PCP Family Medicine; Referring Provider Obstetrics & Gynecology; Visit Provider Obstetrics & Gynecology
DX: K74.60 Unspecified cirrhosis of liver (principal); Z01.818 Encounter for other preprocedural examination
CPT/HCPCS: 36415; 80053; 85025; 85610; 85730

== ENCOUNTER 2025-01-23 13:02 | Day surgery (SDC) | payer MEDICARE, OTHER, SELFPAY ==
[2025-01-13 09:44] VITALS: BMI 37.5
--- NOTE | 2025-01-23 | PATH_ITS ---
[facility] Accession Number: [id number] No. of containers..01 Tissue . 01 Material submitted: . endometrium - ENDOMETRIAL CONTENTS . 01 Diagnosis: ENDOMETRIUM, BIOPSY: Scant fragments of squamous epithelium with changes suggestive of atrophy. No endometrial tissue present for evaluation; multiple levels examined. Predominantly mucoid material. MRV 01/26/2025 1222 Local . 01 Electronically signed: . Michelle Chandra DO, Pathologist NPI- [id number] . 01 Gross description: . The specimen is received in formalin with two patient identifiers and endometrial contents, and consists of a 4.0 x 3.0 x 0.8 cm aggregate of predominantly clear to brown, tinged, mucoid cast-like material. There is a scant amount of soft tissue present. The specimen is filtered and entirely submitted in cassettes A1-and A2. ([id number]) /MRV 01/24/20259 Local . 01 Pathologist provided ICD-10: R93.89 . 01 CPT . 633741 Specimen Comment: A courtesy copy of this report has been sent to [facility] Performed at: [address] [address], [place], [place] [id number] MD Josesito Nickerson MD Phone: [phone]
[2025-01-23 13:24] VITALS: BMI 36.0
--- NOTE | 2025-01-23 13:34 | SUR.OPER ---
Lithotomy on padded OR bed, head on pillow, arms secured on padded arm boards at <90 degrees abduction. Legs secured in padded yellow fins stirrups.
--- NOTE | 2025-01-23 13:35 | PM.PREOP ---
Pre-operative Note Interval Note History & Physical reviewed/Exam performed by Physician: Yes Changes to H&P: No ASA Class (for procedural sedation): II
[2025-01-23] MEDS: LACTATED RINGERS 1,000 ML 42 ML IV (13:45)
[2025-01-23 13:46] VITALS: BP 123/64; PULSE 57; RESP 28; TEMP 36.9; O2SAT 96
[2025-01-23] MEDS: ACETAMINOPHEN IV 1,000 MG/100 ML VIAL 400 MG IV (13:50)
--- NOTE | 2025-01-23 14:21 | PM.OP.1 ---
Operative Date/Time/Diagnoses Date of procedure: 01/23/25 Time of procedure: 14:21 Pre-op diagnosis: abnormal pelvic US Post-op diagnosis: same Procedure & Clinicians Procedure: hysteroscopy, dilation and curettage Same procedure as scheduled: Yes Indications: abnormal pelvic US Surgeon: Charo Lenz Click Yes if Unassisted: Yes Anesthesia Type: General Operative Notes Findings: normal external female genitalia, stenotic atrophic cervix grossly normal in appearance profuse mucoid non-malodorous discharge with cervical entry endometrial cavity atrophic in appearance Closure Type: not applicable Specimen(s): other (endometrial contents ) Estimated Blood Loss (mL): 5 Blood products transfused: none Procedure in detail: Pt was taken to the operating room, transferred to OR table and anesthesia was induced with placement of LMA.? Pt had her legs placed in James stirrups and an exam under anesthesia was performed. The patient was prepped and draped in a sterile fashion.? A time out was performed. ?The bladder was emptied via straight catheter in sterile fashion.? A sterile speculum was inserted into the vagina.? The cervix was visualized and grasped anteriorly using a single tooth tenaculum.? The cervical os was serially dilated using Villagran dilators up to 17f to allow for passage of the hysteroscope.? The 5mm 0 degree hysteroscope was then inserted into the uterus with findings as noted.? The hysteroscope was removed and the uterus was sharply curetted until a gritty texture was noted throughout.? The tenaculum was removed and hemostasis was noted at insertion sites.? The speculum was removed and hemostasis was again noted to be excellent.? The patient then had her legs taken out of stirrups.? The patient tolerated the procedure well and without difficulty.? The patient was awakened from anesthesia and taken to PACU in stable condition. Complications: none Post-operative Condition: stable Disposition: PACU Plan for aftercare: anticipate dc to home pending postop recovery
[2025-01-23 14:22] VITALS: BP 141/75; PULSE 59; RESP 17; TEMP 36.6; O2SAT 94
[2025-01-23 14:27] VITALS: BP 134/71; PULSE 59; RESP 13; O2SAT 92
[2025-01-23 14:33] VITALS: BP 145/67; PULSE 67; RESP 13; O2SAT 92
[2025-01-23 14:40] VITALS: BP 123/76; PULSE 59; RESP 16; O2SAT 95
[2025-01-23 14:54] VITALS: BP 133/67; PULSE 60; RESP 18; O2SAT 93
== END 2025-01-23 15:07 | disposition home or self-care (01) ==
PROVIDERS: PCP Family Medicine; Referring Provider Obstetrics & Gynecology; Visit Provider Obstetrics & Gynecology
PROC: 0UDB8ZZ Extraction of Endometrium, Via Natural or Artificial Opening Endoscopic (ICD-10-PCS; CPT 58558; principal; 2025-01-23 14:30)
DX: R93.89 Abnormal findings on diagnostic imaging of other specified body structures (principal); E66.9 Obesity, unspecified; K70.30 Alcoholic cirrhosis of liver without ascites
CPT/HCPCS: 58558; J0131; J1100; J1885; J2405; J2704

== ENCOUNTER → 2025-04-06 10:46 | Outpatient (CLI) | payer MEDICARE, OTHER, SELFPAY ==
[2025-04-06 12:26] LABS: Alanine Aminotransferase 34 IU/L (<35); Albumin 4.3 g/dL (3.5-5.0); Albumin Globulin Ratio 1.5 (1.0-2.8); Alkaline Phosphatase 138 U/L (38-126); Blood Urea Nitrogen 18 mg/dL (7-17); Calcium 9.8 mg/dL (8.4-10.2); Carbon Dioxide 26 mmol/L (22-32); Chloride 100 mmol/L (98-107); Estimated Glomerular Filt Rate > 60 mL/min (>60); Globulin 2.9 g/dL (1.7-4.1); Glucose 166 mg/dL (70-99); HEMOLYSIS 21 (0-50); Potassium 5.0 mmol/L (3.4-5.1); Sodium 133 mmol/L (137-145); Total Protein 7.2 g/dL (6.3-8.2)
== END ==
PROVIDERS: PCP Family Medicine; Referring Provider Family Medicine; Visit Provider Family Medicine
DX: K70.31 Alcoholic cirrhosis of liver with ascites (principal); E11.9 Type 2 diabetes mellitus without complications; I10 Essential (primary) hypertension
CPT/HCPCS: 36415; 80053

== ENCOUNTER → 2025-06-05 14:31 | Outpatient (CLI) | payer MEDICARE, OTHER, SELFPAY ==
[2025-06-05 15:43] LABS: Add Manual Diff / Slide Review NO; Hematocrit 39.7 % (36-46); Hemoglobin 14.3 g/dL (12.0-16.0); Lymphocytes Absolute Auto 1300 /uL (1100-4500); Mean Corpuscular HGB Conc 36.0 % (30-36); Mean Corpuscular Hemoglobin 33.4 PG (26-34); Mean Corpuscular Volume 93.0 fL (80-100); Platelet Count 136 X10^3/uL (150-400)
[2025-06-05 16:18] LABS: Alanine Aminotransferase 26 IU/L (<35); Albumin 3.8 g/dL (3.5-5.0); Albumin Globulin Ratio 1.3 (1.0-2.8); Alkaline Phosphatase 132 U/L (38-126); Blood Urea Nitrogen 17 mg/dL (7-17); Calcium 9.4 mg/dL (8.4-10.2); Carbon Dioxide 27 mmol/L (22-32); Chloride 94 mmol/L (98-107); Estimated Glomerular Filt Rate > 60 mL/min (>60); Globulin 2.9 g/dL (1.7-4.1); Glucose 208 mg/dL (70-99); HEMOLYSIS < 15 (0-50); INR 1.3 (0.9-1.3); Potassium 4.5 mmol/L (3.4-5.1); Prothrombin Time 14.3 SECONDS (9.4-12.5); Sodium 127 mmol/L (137-145); Total Protein 6.7 g/dL (6.3-8.2)
== END ==
PROVIDERS: PCP Family Medicine; Referring Provider Internal Medicine; Visit Provider Internal Medicine
DX: K74.60 Unspecified cirrhosis of liver (principal)
CPT/HCPCS: 36415; 80053; 82105; 85025; 85610